=== PATIENT | female | born 1995 | race African-American/Black ===

== ENCOUNTER 2020-09-20 14:31 | Emergency (ER) | payer SELFPAY ==
[2020-09-20 15:09] LABS: #Eosinphils 0.2 thou/uL (0.0-0.7); #Monocytes 0.7 thou/uL (0.11-0.59); #Neutrophils 5.4 thou/uL (1.40-6.50); %Basophils 0.2 % (0.0-1.0); %Eosinophils 2.5 % (0.0-10.0); %Lymphocytes 24.3 % (21.0-51.0); %Monocytes 8.6 % (0.0-10.0); %Neutrophils 64.5 % (42.0-75.0); Hemoglobin 12.6 g/dL (12.0-16.0); Mean Corpuscular HGB CONC 34.3 g/dL (32.0-36.0); Mean Corpuscular Hemoglobin 31.3 pg (27.0-31.0); Mean Corpuscular Volume 91.2 fL (78.0-98.0); Mean Platelet Volume 7.1 fL (7.4-10.4); Platelet Count 252 thou/uL (130-400); RBC Distribution Width 11.9 % (11.5-14.5); Red Blood Cell (RBC) Count 4.03 mill/uL (4.20-5.40); White Blood Cell (WBC) Count 8.4 thou/uL (4.8-10.8)
[2020-09-20 15:41] LABS: Bilirubin Negative (Negative); Blood, Urine Negative (Negative); Clarity Clear (Clear); Glucose, Urine (Dipstick) Normal (Negative); Ketone, Urine Negative (Negative); Leukocyte 25 Leu/uL (Negative); Mucous/LPF 1+ LPF (<2+); Nitrite Negative (Negative); Protein, Urine (Dipstick) 20 mg/dL (Neg-Trace); RBC/HPF 0-3 HPF (0-3); Urobilinogen 6 mg/dL (Less than 2); WBC/HPF 0-3 HPF (0-3)
[2020-09-20 15:44] LABS: Pregnancy Test - Urine (BHCG) POSITIVE (Negative); Pregu Control Background? CLEAR/WHITE (CLR/WHITE); Pregu Control Bar Appear? YES (CONTROL BAR)
[2020-09-20 15:48] LABS: Bacteria/HPF 1+ HPF (None Seen)
--- NOTE | 2020-09-20 18:11 | ULT ---
Obstetric sonogram first trimester transabdominal and transvaginal imaging with duplex evaluation HISTORY: Early . Pain and bleeding. FINDINGS: Urinary bladder is decompressed. Left ovary has normal appearance with good color and spect ral Doppler flow. Right ovary not visible. Within the endometrial cavity of the uterus is a gestational sac that contains a yolk sac. pole not visible. Size measurements correlate with 6 weeks 1 day gestational age. Surrounding the gestational sac is a fairly large area of ill-defined heterogeneity with the appearance of subchorion ic hematoma. Minimal free fluid in the pelvis. IMPRESSION : Early gestational sac within the endometrial cavity, gestational age 6 weeks 1 day. Large amount of s ubchorionic hematoma is evident. pole not yet visualized. Please consider close continued sonographic and clinical follow-up.
== END 2020-09-20 18:39 | disposition home or self-care (01) ==
LOC: ERS 14:31
DX: O20.0 Threatened abortion (principal); Z3A.01 Less than 8 weeks gestation of pregnancy
CPT/HCPCS: 36415; 76856; 81003; 81015; 81025; 84702; 85025; 86900; 86901

== ENCOUNTER 2020-11-25 17:11 | Emergency (ER) | payer SELFPAY ==
[2020-11-25 19:20] LABS: Bilirubin Negative (Negative); Blood, Urine Negative (Negative); Clarity Clear (Clear); Glucose, Urine (Dipstick) Normal (Negative); Ketone, Urine Negative (Negative); Leukocyte 500 Leu/uL (Negative); Nitrite Negative (Negative); Protein, Urine (Dipstick) 10 mg/dL (Neg-Trace); RBC/HPF 0-3 HPF (0-3); Specific Gravity, Urine 1.024 (1.002-1.036); Urobilinogen Normal mg/dL (Less than 2); pH, Urine 6.5 (5.0-9.0)
[2020-11-25 19:21] LABS: Bacteria/HPF 1+ HPF (None Seen); Pregnancy Test - Urine (BHCG) Negative (Negative); Pregu Control Background? CLEAR/WHITE (CLR/WHITE); Pregu Control Bar Appear? YES (CONTROL BAR); Specific Gravity 1.024 (1.002-1.036)
[2020-11-25] MEDS ORDERED: Sterile Water 10 ML ONE (20:23)
[2020-11-25] MEDS ORDERED: cefTRIAXone\\ROCEPHIN 500 MG VIAL ONE (20:23)
[2020-11-25] MEDS ORDERED: metroNIDAZOLE 250 MG TAB ONE ×2 (20:27→20:33)
[2020-11-26 21:59] LABS: Chlamydia by PCR Not Detected (NotDetected); GC by PCR Not Detected (NotDetected)
== END 2020-11-25 21:20 | disposition home or self-care (01) ==
LOC: ERS 17:11
DX: B37.3 Candidiasis of vulva and vagina (principal); N76.0 Acute vaginitis
CPT/HCPCS: 81003; 81015; 81025; 87480; 87491; 87510; 87591; 87660; 96372; 99283; J0696

== ENCOUNTER 2022-09-15 22:56 | Emergency (ER) | payer SELFPAY ==
[2022-09-16] MEDS ORDERED: Ondansetron ODT 4 MG TAB ONE (00:19)
[2022-09-16] MEDS ORDERED: Acetaminophen 500 MG TAB ONE (00:19)
== END 2022-09-16 03:00 | disposition home or self-care (01) ==
LOC: ERS 22:56
DX: J10.1 Influenza due to other identified influenza virus with other respiratory manifestations (principal); Z20.822 Contact with and (suspected) exposure to COVID-19
CPT/HCPCS: 87804; 99283; Q0162; U0003; U0005

== ENCOUNTER 2023-01-27 09:01 | Emergency (ER) | payer OTHER, SELFPAY | END 2023-01-27 12:12 | disposition home or self-care (01) | LOC: ERS 09:01 | DX: B34.9 Viral infection, unspecified (principal); Z20.822 Contact with and (suspected) exposure to COVID-19 | CPT/HCPCS: 99283; U0003; U0005 ==